=== PATIENT | male | born 1985 | race Caucasian/White ===

== ENCOUNTER 2019-04-19 19:24 | Emergency (ER) | payer MEDICAID ==
[~2019-04-19] VITALS: Ht 190.5 cm; Wt 120.2 kg
[2019-04-19 19:37] VITALS: Ht 190.5 cm; Wt 120.2 kg
[2019-04-19 20:38] LABS: BASOPHIL % 0.6 % (0-2); PLATELET COUNT 210 x10^3mcL (130-400); RED CELL DISTRIBUTION WIDTH 13.1 % (11.5-14.5)
[2019-04-19 21:18] LABS: CALCIUM 8.1 mg/dL (8.5-10.1); CARBON DIOXIDE 28.8 mmol/L (21-32); CHLORIDE SERUM 103 mmol/L (98-107); CREATININE SERUM 1.2 mg/dL (0.7-1.3); GFR1 > 60 mL/min; GLUCOSE SERUM 85 mg/dL (74-106); POTASSIUM SERUM 3.7 mmol/L (3.5-5.1); SODIUM SERUM 140 mmol/L (136-145)
[2019-04-19 21:23] LABS: ALBUMIN 3.8 g/dL (3.4-5.0); ALKALINE PHOSPHATASE 114 U/L (46-116); ALT/SGPT 24 U/L (16-63); AST/SGOT 22 U/L (15-37); BILIRUBIN TOTAL 0.2 mg/dL (0.20-1.00); TOTAL PROTEIN, SERUM 7.5 g/dL (6.4-8.2)
[2019-04-19 22:36] VITALS: BP 135/71
== END 2019-04-19 22:36 | disposition home or self-care (01) ==
LOC: ED 19:24
PROVIDERS: Specialist
DX: J45.901 Unspecified asthma with (acute) exacerbation (principal); F17.210 Nicotine dependence, cigarettes, uncomplicated; E66.01 Morbid (severe) obesity due to excess calories; Z90.89 Acquired absence of other organs
CPT/HCPCS: 36415; 87804; 99406; J0171; J1885; J3475; J7030; J7613; J7644; Q0092